=== PATIENT | male | born 1980 | race Caucasian/White ===

== ENCOUNTER 2021-04-02 09:23 | Outpatient (REF) | payer BC, SELFPAY ==
--- NOTE | 2021-04-02 13:14 | MHC.AU.ANR ---
Adult Audiological Evaluation Date of Visit: 04/02/21 Reason for Appointment: Audiological evaluation to concerns for sudden onset whooshing noise in the left ear. Patient notes that about two weeks ago he began to have a very loud, bothersome whooshing sound in the left ear. He notes that it has decreased some since initial onset and isn't as bothersome, but is still present. He denies any changes to his medical history, any recent congestion, any trauma to his head or ear, or any change in his hearing recently. Does patient feel they have a hearing loss?: No Has hearing been tested previously?: No Hearing Handicap Inventory: HHIE SCORE: 10 Based on HHIE score, patient has: Mild to moderate perceived hearing handicap Ear History: Bothersome Tinnitus/Ringing/Noises in Ears: Left Ear Medical History: Medical History: Headache Allergies: NSAIDs, cranberries, Aleve Otoscopy: Right Ear: Unremarkable Left Ear: Red, retracted TM. Small spot of blood (?) on posterior TM. Clear canal. Tympanometry: Tympanometry performed due to: To assess integrity of the middle ear system Right Ear: Normal Middle Ear System (Type A) Left Ear: Non-compliant Middle Ear System (Type B) Hearing Evaluation: Transducer(s) Used: Insert Earphones, Bone Conduction Method: Conventional Audiometry Stimuli Used: Pure Tones Right Ear: Description of Hearing: Normal hearing from 250-8000 Hz. Left Ear: Description of Hearing: Normal hearing from 250-8000 Hz. Speech Recognition Threshold (SRT): Method Used: Monitored Live Voice Stimuli Used: Spondee Words Right Ear: 5 dBHL Left Ear: 0 dBHL Word Discrimination: Method: Recorded Lists Word Lists Used: NU-6 Right Ear: 100% at 50 dBHL Left Ear: 100% at 50 dBHL Interpretation of Results: Middle-ear dysfunction in the left ear that is not impacting hearing sensitivity at this time. Recommendations: Audiological re-evaluation if changes are noted. Referral to Ear, Nose, and Throat to address middle ear dysfunction and pulsatile tinnitus in the left ear. Diagnosis: Primary Diagnosis: H69.92 Unspecified Eustachian Tube Dysfunction, Left Ear Secondary Diagnosis: H93.12 Tinnitus, Left Ear Services Performed: Services Performed: Comprehensive Audiological Evaluation (CPT 72834) Tympanometry (CPT 42033) Signature: Provider: Mariana Ball, CCC-A
== END 2021-04-02 09:24 | disposition home or self-care (01) ==
LOC: HO.SH 09:23
PROVIDERS: Visit Provider Physician Assistant
DX: H69.92 Unspecified Eustachian tube disorder, left ear (principal); H93.12 Tinnitus, left ear
CPT/HCPCS: 92557; 92567